=== PATIENT | female | born 1980 | race Two or more races ===

== ENCOUNTER 2017-02-18 20:43 | Inpatient (IN) | payer MEDICAID ==
[~2017-02-18] VITALS: Ht 165.1 cm; Wt 58.5 kg
[2017-02-18] MEDS ORDERED: Magnesium 1GM/D5W 100ML PREMIX 200 ML IV ONE ×2 (21:05→21:16)
[2017-02-18] MEDS ORDERED: IV SET PRIMARY PUMP SET 1 EA INFUS.SET MC ONE (21:05)
[2017-02-18] MEDS ORDERED: methylPREDNISolone SOD SUCC 125 MG/2ML VIAL ONE (21:05)
--- NOTE | 2017-02-18 21:10 | NUR ---
PT BIB C/O SOB X2 WEEKS, WORSE TODAY. PT HAS HX OF ASTHMA AND HAS BEEN USING HER RESCUE INHALER MORE THAN USUAL. MODERATE SOB, T[place], SHALLOW RESPIRATIONS. O2 SAT 93% ON ROOM AIR. UNABLE TO SPEAK FULL SENTENCES WITHOUT STOPPING. SKIN WARM NONDIAPHORETIC. DENIES N/V/D. NO OTHER COMPLAINTS. IN ER BED 09 ON MONITOR.
[2017-02-18] MEDS ORDERED: ONDANSETRON HCL/PF 4 MG/2 ML VIAL ONE (21:13)
--- NOTE | 2017-02-18 21:20 | NUR ---
PT VOMITED MULTIPLE TIMES IN A ROW. FUNDRAISING OFFICER NOTIFIED. ZOFRAN ADMINISTERED PER ORDER.
[2017-02-18] MEDS ORDERED: ALBUTEROL FS 2.5 MG/3 ML VIAL.NEB ONE ×2 (21:26→23:37)
[2017-02-18] MEDS ORDERED: IPRATROPIUM NEB FS 0.5 MG/2.5 ML AMPUL.NEB ONE (21:26)
[2017-02-18 21:27] LABS: HEMOGLOBIN 15.7 g/dL (11.5-14.8); MEAN CORPUSCULAR HEMOGLOBIN 30 PG (26.0-33.0)
[2017-02-18] MEDS ORDERED: ALBUTEROL FS 2.5 MG/3 ML VIAL.NEB NEB ONE (21:30)
[2017-02-18] MEDS ORDERED: methylPREDNISolone SOD SUCC 125 MG/2ML VIAL IV ONE (21:30)
[2017-02-18] MEDS ORDERED: ONDANSETRON HCL/PF - ER 4 MG/2 ML VIAL IV ONE (21:30)
[2017-02-18] MEDS ORDERED: IPRATROPIUM NEB FS 0.5 MG/2.5 ML AMPUL.NEB NEB ONE (21:30)
[2017-02-18 21:32] LABS: CALCIUM, SERUM 9.7 mg/dL (8.5-10.1); CREATININE 0.7 mg/dL (0.6-1.3); POTASSIUM 3.8 mmol/L (3.5-5.1)
[2017-02-18 21:39] LABS: BASOPHILS # (AUTO) 0.2 /CMM (0.0-0.2); BASOPHILS % (AUTO) 0.9 % (0.0-2.0); EOSINOPHILS # (AUTO) 0.8 /CMM (0.0-0.7); EOSINOPHILS % (AUTO) 3.8 % (0.0-6.0); HEMATOCRIT 46 % (33-45); LYMPHOCYTES # (AUTO) 2.4 /CMM (0.8-4.8); LYMPHOCYTES % (AUTO) 11.3 % (20.0-44.0); MEAN CORPUSCULAR HGB CONC 34 g/dl (31.0-36.0); MEAN CORPUSCULAR VOLUME 87 fL (82-100); MONOCYTES % (AUTO) 4.9 % (2.0-12.0); NEUTROPHILS # (AUTO) 16.7 /CMM (1.8-8.9); NEUTROPHILS % (AUTO) 79.1 % (43.0-81.0); PLATELET COUNT (AUTO) 316 /CMM (150-450); RDW COEFFICIENT OF VARIATION 12.8 (11.5-15.0); WHITE BLOOD COUNT (AUTO) 21.1 K/uL (4.3-11.0)
--- NOTE | 2017-02-18 21:49 | NUR ---
BREATHING TX ONGOING. PT HAVING AN EASIER TIME BREATHING.
--- NOTE | 2017-02-18 21:56 | NUR ---
BREATHING TX COMPLETED AT THIS TIME
--- NOTE | 2017-02-18 22:32 | NUR ---
RESP EVEN UNLABORED. PT NOW ABL TO SPEAK IN COMPLETE SENTENCES. NAD NOTED.
--- NOTE | 2017-02-18 23:23 | NUR ---
PT BECOMING MORE SHORT OF BREATH AGAIN. RT CALLED FOR BREATHING TX. REPORT GIVEN TO LO SANON RN FOR CONTINUITY OF CARE.
[2017-02-19] MEDS ORDERED: ALBUTEROL FS 2.5 MG/3 ML VIAL.NEB CONTNEB ONE
--- NOTE | 2017-02-19 00:02 | NUR ---
REPORT GIVEN TO LEIDY HENNESSY FOR CONTINUATION OF CARE.
--- NOTE | 2017-02-19 00:10 | NUR ---
MS/RN NOTES RECEIVED PT. FROM ER VIA [facility]. PT. IS AWAKE, ALERT AND ORIENTED X3. BREATHING EVEN AND UNLABORED ON ROOM AIR. PT. STILL RECEIVING NEBULIZER TREATMENT FROM ER. NO SOB, RESPIRATORY DISTRESS OR COMPLAINTS OF PAIN NOTED AT THIS TIME. PT. WITH LEFT AC 20 GAUGE IV SALINE LOCK PRESENT, PATENT AND INTACT. PT. WITH FAMILY PRESENT AT BEDSIDE. BED IN LOWEST POSITION, CALL LIGHT WITHIN REACH, WILL CONTINUE TO MONITOR.
--- NOTE | 2017-02-19 00:12 | NUR ---
PT TO 3W VIA MARA Puente/ MINOO.
[2017-02-19] MEDS ORDERED: IV NS 0.9% 1,000 ML IV PRN (00:31)
[2017-02-19] MEDS ORDERED: ENOXAPARIN SODIUM 40 MG/0.4 ML DISP.SYRIN SQ SCH (01:00)
[2017-02-19] MEDS ORDERED: ZOLPIDEM TARTRATE 5 MG TABLET PO PRN (01:00)
[2017-02-19] MEDS ORDERED: ACETAMINOPHEN 325 MG TABLET PO PRN (01:00)
[2017-02-19] MEDS ORDERED: ONDANSETRON HCL/PF 4 MG/2 ML VIAL IVP PRN (01:00)
[2017-02-19 01:48] VITALS: BP 133/74
[2017-02-19] MEDS ORDERED: ENOXAPARIN SODIUM 40 MG/0.4 ML DISP.SYRIN SQ ONE (01:52)
[2017-02-19] MEDS ORDERED: methylPREDNISolone SOD SUCC 125 MG/2ML VIAL ONE (01:52)
[2017-02-19] MEDS ORDERED: ACETAMINOPHEN 325 MG TABLET ONE (01:53)
[2017-02-19] MEDS ORDERED: IV NS 0.9% 1,000 ML ONE (01:55)
[2017-02-19] MEDS ORDERED: IV SET PRIMARY PUMP SET 1 EA INFUS.SET MC ONE (01:55)
[2017-02-19] MEDS: methylPREDNISolone SOD SUCC 125 MG/2ML VIAL IV SCH ×4 (02:00→17:24)
[2017-02-19] MEDS ORDERED: FLUTICASONE/SALMETEROL 1 DISK IH ONE (02:01)
[2017-02-19] MEDS: FLUTICASONE/SALMETEROL DISKUS IH SCH ×3 (02:29→17:24)
[2017-02-19] MEDS: IPRATROPIUM NEB FS 0.5 MG/2.5 ML AMPUL.NEB NEB SCH ×7 (03:30→23:51)
[2017-02-19] MEDS: ALBUTEROL FS 2.5 MG/0.5 ML VIAL.NEB NEB SCH ×8 (03:30→23:51)
--- NOTE | 2017-02-19 06:18 | NUR ---
MS/RN NOTES PT. SITTING UP IN BED RESTING. BREATHING EVEN AND UNLABORED ON 2LPM O2 VIA NC. NO SOB, WHEEZING, RESPIRATORY DISTRESS OR COMPLAINTS OF PAIN NOTED AT THIS TIME. PT. WITH LEFT AC 20 GAUGE PERIPHERAL IV PRESENT, PATENT AND INTACT ADMINISTERING TO PT. NS @ 75 ML/HR. ALL PT. NEEDS MET. BED IN LOWEST POSITION, CALL LIGHT WITHIN REACH, WILL ENDORSE TO DAYSHIFT NURSE FOR CONTINUITY OF CARE.
--- NOTE | 2017-02-19 07:10 | NUR ---
MS RN NOTES RECEIVED PATIENT IN BED, AWAKE. A/O X4. ON OXYGEN AT 2L/MIN VIA NC, NO SOB NOTED. IV IN LEFT AC G20 PATENT AND INTACT, IV NS INFUSING AT 75ML/HR. NO C/O PAIN AT THIS TIME. CALL LIGHT WITHIN REACH.
[2017-02-19 08:00] VITALS: BP 119/74
[2017-02-19] MEDS: IV NS 0.9% 1,000 ML IV PRN (12:32)
[2017-02-19 16:00] VITALS: BP 127/74
--- NOTE | 2017-02-19 18:35 | NUR ---
MS RN CLOSING NOTES PATIENT IN BED, NOT IN DISTRESS. BREATHING EVEN AND NON LABORED, BREATHING TREATMENT GIVEN BY RT. NO SOB NOTED. PATIENT IS AMBULATORY, VOIDED WITHOUT DIFFICULTY. IVF NS INFUSING AT 75ML/HR, PATIENT TOLERATING WELL. NO C/O PAIN OR ANY DISCOMFORT. CALL LIGHT WITHIN REACH. LAB IN AM ORDERED. WILL ENDORSE TO ALTERATION SPECIALIST RN FOR CONTINUITY OF CARE.
--- NOTE | 2017-02-19 19:30 | NUR ---
MS RN OPENING NOTES: PATIENT IN BED, AOX4, ON O2 AT 2 LPM VIA NC. BREATHING EVEN AND UNLABORED. BREATH SOUNDS CLEAR TO AUSCULTATION, WITHOUT WHEEZING OR OTHER ADVENTITIOUS SOUNDS. PIV ACCESS OVER LAC G 20 INTACT AND INFUSING WELL WITH NS RUNNING AT 75 ML/HR. PROVIDED FOR COMFORT AND SAFETY. HOB ELEVATED. WILL CONT TO MONITOR.
[2017-02-19 20:00] VITALS: BP 132/68
[2017-02-19] MEDS: ENOXAPARIN SODIUM 40 MG/0.4 ML DISP.SYRIN SQ SCH (21:00)
[2017-02-19 22:00] VITALS: BP 132/68
[2017-02-20] MEDS: IV NS 0.9% 1,000 ML IV PRN ×2 (02:32→20:54)
[2017-02-20] MEDS: ALBUTEROL FS 2.5 MG/0.5 ML VIAL.NEB NEB SCH ×6 (03:14→23:22)
[2017-02-20] MEDS: IPRATROPIUM NEB FS 0.5 MG/2.5 ML AMPUL.NEB NEB SCH ×6 (03:14→23:22)
[2017-02-20 06:17] LABS: BASOPHILS % (AUTO) 0.1 % (0.0-2.0); HEMATOCRIT 39 % (33-45); HEMOGLOBIN 12.8 g/dL (11.5-14.8); LYMPHOCYTES # (AUTO) 1.5 /CMM (0.8-4.8); LYMPHOCYTES % (AUTO) 7.9 % (20.0-44.0); MEAN CORPUSCULAR HEMOGLOBIN 29 PG (26.0-33.0); MEAN CORPUSCULAR HGB CONC 33 g/dl (31.0-36.0); MEAN CORPUSCULAR VOLUME 88 fL (82-100); MONOCYTES # (AUTO) 1.2 /CMM (0.1-1.30); NEUTROPHILS # (AUTO) 16.7 /CMM (1.8-8.9); PLATELET COUNT (AUTO) 287 /CMM (150-450); RDW COEFFICIENT OF VARIATION 14.4 (11.5-15.0); RED BLOOD CELL COUNT(AUTO) 4.39 MIL/uL (4.0-5.2); WHITE BLOOD COUNT (AUTO) 19.4 K/uL (4.3-11.0)
[2017-02-20 07:14] LABS: ALBUMIN 3.1 g/dL (3.4-5.0); BILIRUBIN,TOTAL 0.2 mg/dL (0.2-1.0); CALCIUM, SERUM 8.8 mg/dL (8.5-10.1); CREATININE 0.6 mg/dL (0.6-1.3); MAGNESIUM 2.3 mg/dL (1.8-2.4); PHOSPHORUS 3.1 mg/dL (2.5-4.9); TOTAL PROTEIN, SERUM 6.8 g/dL (6.4-8.2)
--- NOTE | 2017-02-20 07:20 | NUR ---
MS RN NOTES RECEIVED PATIENT IN BED, AWAKE, A/O X4. APPEARS COMFORTABLE IN BED, NO C/O PAIN OR ANY DISCOMFORT. IV IN LEFT AC G20 PATENT AND INTACT, IV NS INFUSING AT 75ML/HR. ON OXYGENT AT 2L/MIN VIA NC, NO SOB NOTED. CALL LIGHT WITHIN REACH. WILL CONT TO MONITOR.
--- NOTE | 2017-02-20 07:20 | NUR ---
MS RN CLOSING NOTES: PATIENT IN BED, AOX4, ON ROOM AIR, BREATHING EVEN AND UNLABROED. ON O2 AT 2 LPM VIA NC. BREATHING EVEN AND UNLABORED. PIV ACCESS OVER LAC G20 INTACT AND PATENT TO FLUSH. PROVIDED FOR COMFORT AND SAFETY. NO ACUTE CHANGE IN CONDITION NOTED THROUGH SHIFT. WILL ENDORSEE TO AM RN FOR MOE.
[2017-02-20 07:24] LABS: THYROID STIMULATING HORMONE 0.516 uIU/mL (0.358-3.74)
[2017-02-20 08:00] VITALS: BP 125/77
[2017-02-20] MEDS: methylPREDNISolone SOD SUCC 125 MG/2ML VIAL IV SCH ×3 (08:29→16:56)
[2017-02-20] MEDS: FLUTICASONE/SALMETEROL DISKUS IH SCH ×2 (08:30→16:56)
[2017-02-20] MEDS ORDERED: SECONDARY IV SET 1 EA INFUS.SET MC ONE (10:20)
[2017-02-20] MEDS: LEVOFLOXACIN 750 MG /D5W 150ML 750 MG in PREMIX 1 EA IV SCH (10:22)
[2017-02-20 13:03] LABS: MAGNESIUM 2.2 mg/dL (1.8-2.4); PHOSPHORUS 3.2 mg/dL (2.5-4.9)
[2017-02-20 16:00] VITALS: BP 142/88
[2017-02-20] MEDS: GUAIFENESIN/D-METHORPHAN HB 5 ML UDC PO PRN (16:21)
--- NOTE | 2017-02-20 18:23 | NUR ---
MS RN CLOSING NOTES PATIENT IN BED, NOT IN DISTRESS. BREATHING TX GIVEN BY RT, NO SOB NOTED. ON ANTIBIOTIC WITH NO ADVERSE REACTION, AFEBRILE. NO C/O PAIN AT THIS TIME. CALL LIGHT WITHIN REACH. LAB IN AM. WILL ENDORSE TO MEDIA AID RN FOR CONTINUITY OF CARE.
--- NOTE | 2017-02-20 19:30 | NUR ---
MS RN OPENING NOTES: PATIENT IN BED, AOX4, ON O2 AT 2 LPM VIA NC, BREATHING EVEN AND UNLABORED. BREATH SOUNDS CLEAR TO AUSCULTATION. APPEARS CALM AND DENIES PAIN OR DISCOMFORT/ AT THIS TIME. PATIENT HAS PIV OVER LAC G 20 INTACT AND PATENT, INFUSING WELL WITH NS RUNNING AT 75 ML/HR. PROVIDED FOR COMFORT AND SAFETY. WILL CONT TO MONITOR.
[2017-02-20 20:00] VITALS: BP 131/78
[2017-02-20] MEDS: ENOXAPARIN SODIUM 40 MG/0.4 ML DISP.SYRIN SQ SCH (20:46)
[2017-02-21] MEDS: IPRATROPIUM NEB FS 0.5 MG/2.5 ML AMPUL.NEB NEB SCH ×4 (03:30→14:16)
[2017-02-21] MEDS: ALBUTEROL FS 2.5 MG/0.5 ML VIAL.NEB NEB SCH ×4 (03:30→14:16)
[2017-02-21] MEDS: GUAIFENESIN/D-METHORPHAN HB 5 ML UDC PO PRN (04:30)
--- NOTE | 2017-02-21 07:00 | NUR ---
RN NOTES: PATIENT IN BED, AOX4, ON O2 AT 2 LPM VIA NC. BREATHING EVEN AND UNLABORED. NO ACUTE CHANGE IN CONDITION NOTED THROUGH SHIFT. DUE MEDS GIVEN. PROVIDED FOR COMFORT AND SAFETY. WILL ENDORSE TO AM RN FOR MOE.
--- NOTE | 2017-02-21 07:00 | NUR ---
MS RN NOTES RECEIVED PATIENT IN BED, A/OX4. ON ROOM AIR, NO SOB NOTED. IV NS INFUSING WELL. NO C/O PAIN AT THIS TIME. CALL LIGHT WITHIN REACH. WILL CONT TO MONITOR.
[2017-02-21 07:44] LABS: BASOPHILS % (AUTO) 0.2 % (0.0-2.0); HEMATOCRIT 38 % (33-45); HEMOGLOBIN 12.5 g/dL (11.5-14.8); LYMPHOCYTES % (AUTO) 10.9 % (20.0-44.0); MEAN CORPUSCULAR HEMOGLOBIN 29 PG (26.0-33.0); MEAN CORPUSCULAR HGB CONC 33 g/dl (31.0-36.0); MEAN CORPUSCULAR VOLUME 89 fL (82-100); MONOCYTES # (AUTO) 1.5 /CMM (0.1-1.30); NEUTROPHILS # (AUTO) 14.7 /CMM (1.8-8.9); NEUTROPHILS % (AUTO) 80.9 % (43.0-81.0); PLATELET COUNT (AUTO) 291 /CMM (150-450); RDW COEFFICIENT OF VARIATION 14.2 (11.5-15.0); RED BLOOD CELL COUNT(AUTO) 4.28 MIL/uL (4.0-5.2); WHITE BLOOD COUNT (AUTO) 18.1 K/uL (4.3-11.0)
[2017-02-21 08:00] VITALS: BP 120/70
[2017-02-21 08:14] LABS: CALCIUM, SERUM 8.5 mg/dL (8.5-10.1); CREATININE 0.6 mg/dL (0.6-1.3); MAGNESIUM 2.3 mg/dL (1.8-2.4); PHOSPHORUS 2.7 mg/dL (2.5-4.9); POTASSIUM 3.6 mmol/L (3.5-5.1)
[2017-02-21] MEDS: methylPREDNISolone SOD SUCC 125 MG/2ML VIAL IV SCH ×3 (09:22→16:49)
[2017-02-21] MEDS: FLUTICASONE/SALMETEROL DISKUS IH SCH ×2 (09:22→16:49)
[2017-02-21] MEDS: LEVOFLOXACIN 750 MG /D5W 150ML 750 MG in PREMIX 1 EA IV SCH (10:08)
--- NOTE | 2017-02-21 11:58 | NUR ---
PER PATIENT HER LEFT NOSTRIL FEELS LIKE CONGESTED. INFORMED DR. DANIELLE, ORDERED FLUTICASONE SPRAY TO NOSTRILS BID NOTED AND ACKNOWLEDGED.
[2017-02-21] MEDS ORDERED: PRED20TA PO (12:40)
[2017-02-21] MEDS ORDERED: PRED20TA GT (12:40)
[2017-02-21] MEDS ORDERED: PRED10TA PO (12:40)
[2017-02-21] MEDS ORDERED: LEVO750T21 PO (12:40)
[2017-02-21] MEDS ORDERED: ALBU2.5V13 NEB (12:40)
[2017-02-21] MEDS ORDERED: PRED50TA PO (12:40)
[2017-02-21] MEDS ORDERED: PANT40TA2 PO (12:40)
[2017-02-21] MEDS ORDERED: FLUT16SP16 NS (12:40)
[2017-02-21] MEDS ORDERED: GUAI5SYR PO (12:40)
--- NOTE | 2017-02-21 12:41 | NUR ---
PATIENT TO BE DISCHARGED HOME ORDERED.
[2017-02-21] MEDS: FLUTICASONE PROPIONATE 16 GM BOTTLE NS SCH ×2 (13:00→16:49)
--- NOTE | 2017-02-21 14:50 | NUR ---
REVIEWED VACCINATIONS STATUS WITH THE PATIENT. PER PATIENT SHE DID NOT RECEIVED VACCINE LAST YEAR AND PREFERS NOT TO RECEIVED FLU AND PNA VACCINE. UPDATED VACCINATION STATUS.
[2017-02-21 16:00] VITALS: BP 116/70
--- NOTE | 2017-02-21 16:59 | NUR ---
MS RN DISCHARGED PATIENT HAS BEEN CLEARED FOR DISCHARGE HOME BY . PATIENT IS AMBULATORY, SKIN INTACT. NO SOB. V/S REMAINS STABLE. DISCHARGE INSTRUCTION GIVEN TO THE PATIENT, VERBALIZED UNDERSTANDING. BELONGINGS CHECKED AND SEND WITH THE PATIENT UPON DC. PATIENT LEFT HOSP IN STABLE CONDITION VIA PRIVATE CAR ACCOMPANIED BY JAYME.
== END 2017-02-21 16:55 | disposition home or self-care (01) | DRG 139 ==
LOC: ER 20:45 → MED 02-19 00:01
PROVIDERS: ADMIT Nurse Practitioner Acute Care; ATTEND Nurse Practitioner Acute Care
DX: J15.9 Unspecified bacterial pneumonia (principal); J45.901 Unspecified asthma with (acute) exacerbation; J06.9 Acute upper respiratory infection, unspecified; D72.829 Elevated white blood cell count, unspecified
CPT/HCPCS: 36415; 71010-TC; 80048-TC; 80053-TC; 80061-TC; 83735-TC; 84100-TC; 84443-TC; 85025-TC; 87081-TC; 94799-TC; A4216; A4606; J1650; J1956; J2405; J2930; J3475; J7030; Z7610